=== PATIENT | male | born 1975 | race Caucasian/White ===

== ENCOUNTER 2018-05-19 10:44 | Inpatient (IN) | payer BC, OTHER ==
[~2018-05-19] VITALS: Ht 182.9 cm; Wt 86.2 kg
[2018-05-19] MEDS ORDERED: ONDANSETRON ODT 4 MG TAB.RAPDIS SL PRN (21:45)
[2018-05-19] MEDS ORDERED: ONDANSETRON 4 MG/2 ML VIAL IM PRN (21:45)
[2018-05-19] MEDS ORDERED: LORAZEPAM 2 MG/1 ML VIAL IM PRN (21:45)
[2018-05-19] MEDS ORDERED: LOPERAMIDE HCL 2 MG CAPSULE PO PRN ×2 (21:45)
[2018-05-19] MEDS ORDERED: MIRALAX 17 GM POWD.PACK PO PRN (21:45)
[2018-05-19] MEDS ORDERED: ACETAMINOPHEN 325 MG TABLET PO PRN (21:45)
[2018-05-19] MEDS ORDERED: CLONIDINE HCL 0.1 MG TABLET PO PRN (21:45)
[2018-05-19] MEDS ORDERED: MAGNESIUM HYDROXIDE 30 ML LIQUID UDC PO PRN (21:45)
[2018-05-19] MEDS ORDERED: DIAZEPAM 10 MG TABLET PO PRN ×2 (21:45)
[2018-05-19] MEDS ORDERED: MAG HYDROX/AL HYDROX/SIMETH 30 ML LIQUID UDC PO PRN (21:45)
[2018-05-19] MEDS ORDERED: diphenhydrAMINE 50 MG CAPSULE PO PRN (21:45)
[2018-05-19] MEDS ORDERED: IBUPROFEN 600 MG TABLET PO PRN (21:45)
[2018-05-19] MEDS ORDERED: HYDROXYZINE PAMOATE 25 MG CAPSULE PO PRN (21:45)
[2018-05-19] MEDS ORDERED: THIAMINE HCL 100 MG TABLET PO SCH (22:15)
[2018-05-19] MEDS: FOLIC ACID 1 MG TABLET PO SCH (22:15)
[2018-05-19] MEDS: MULTIVITAMINS,THERAPEUTIC TABLET PO SCH (22:15)
[2018-05-19 22:44] LABS: *AMPHETAMINE, URINE NEGATIVE (NEGATIVE); *BARBITURATE, URINE NEGATIVE (NEGATIVE); *CANNABINOID, URINE NEGATIVE (NEGATIVE); *COCCAINE, URINE NEGATIVE (NEGATIVE); *OPIATE, URINE NEGATIVE (NEGATIVE); *PHENCYCLIDINE SCREEN,URINE NEGATIVE (NEGATIVE)
[2018-05-19] MEDS ORDERED: THIAMINE HCL 200 MG/2 ML VIAL IM ONE (23:00)
[2018-05-20] VITALS: BP 114/77
[2018-05-20 02:15] LABS: BASOPHILS # (AUTO) 0.1 K/uL (0.0-8.0); BASOPHILS % (AUTO) 1.7 % (0.0-2.0); EOSINOPHILS % (AUTO) 0.7 % (0.0-7.0); HEMATOCRIT 43.5 % (36.7-47.1); HEMOGLOBIN 15.5 g/dL (12.5-16.3); LYMPHOCYTES # (AUTO) 1.1 K/uL (20.0-40.0); LYMPHOCYTES % (AUTO) 31.6 % (20.5-51.5); MEAN CORPUSCULAR HEMOGLOBIN 35.7 uug (23.8-33.4); MEAN CORPUSCULAR HGB CONC 36 g/dL (32.5-36.3); MEAN CORPUSCULAR VOLUME 100.3 fL (73.0-96.2); MONOCYTES # (AUTO) 0.4 K/uL (2.0-10.0); MONOCYTES % (AUTO) 12.5 % (0.0-11.0); NEUTROPHILS # (AUTO) 1.9 K/uL (1.8-8.9); NEUTROPHILS % (AUTO) 53.5 % (38.5-71.5); PLATELET COUNT (AUTO) 135 K/uL (152-348); RED BLOOD CELL COUNT(AUTO) 4.34 MIL/uL (4.06-5.63); WHITE BLOOD COUNT (AUTO) 3.6 K/uL (3.6-10.2)
[2018-05-20 02:49] LABS: BILIRUBIN,TOTAL 0.4 mg/dL (0.2-1.0); CREATININE 0.9 mg/dL (0.6-1.3); POTASSIUM 3.6 mmol/L (3.5-5.1); TOTAL PROTEIN, SERUM 7.2 g/dL (6.4-8.2)
[2018-05-20 02:59] LABS: THYROID STIMULATING HORMONE 2.183 mIU/mL (0.358-3.740)
[2018-05-20 04:00] VITALS: BP 123/82
[2018-05-20 08:00] VITALS: BP 132/92
[2018-05-20] MEDS ORDERED: TUBERCULIN,PURIF.PROT.DERIV. 5 TU/0.1 ML TEST ID ONE (09:00)
[2018-05-20] MEDS: MULTIVITAMINS,THERAPEUTIC TABLET PO SCH (09:32)
[2018-05-20] MEDS: THIAMINE HCL 100 MG TABLET PO SCH (09:32)
[2018-05-20] MEDS: FOLIC ACID 1 MG TABLET PO SCH (09:32)
[2018-05-20 12:00] VITALS: BP 138/92
[2018-05-20] MEDS ORDERED: HYDR-3895 PO (13:51)
[2018-05-20] MEDS ORDERED: FOLI1TAB16 PO (13:51)
[2018-05-20] MEDS ORDERED: IBUP-1955 PO (13:51)
[2018-05-20] MEDS ORDERED: MULT-24 PO (13:51)
[2018-05-20] MEDS ORDERED: CLON0.1T14 PO (13:51)
[2018-05-20] MEDS ORDERED: DIPH50CA37 PO (13:51)
[2018-05-20 16:00] VITALS: BP 140/91
[2018-05-20 20:12] VITALS: BP 131/86
[2018-05-21 07:07] LABS: HEPATITIS B SURFACE AG Negative (Negative)
[2018-05-21 08:03] VITALS: BP 115/80
[2018-05-21] MEDS: MULTIVITAMINS,THERAPEUTIC TABLET PO SCH (08:31)
[2018-05-21] MEDS: FOLIC ACID 1 MG TABLET PO SCH (08:31)
[2018-05-21] MEDS: THIAMINE HCL 100 MG TABLET PO SCH (08:31)
== END 2018-05-21 09:48 | disposition other institution (70) | DRG 895 ==
LOC: SRC 19:51
PROVIDERS: ADMIT Family Medicine Addiction Medicine; ATTEND Family Medicine Addiction Medicine
PROC: HZ2ZZZZ Detoxification Services for Substance Abuse Treatment (ICD-10-PCS; principal; 2018-05-19)
PROC: HZ41ZZZ Group Counseling for Substance Abuse Treatment, Behavioral (ICD-10-PCS; 2018-05-20)
DX: F10.230 Alcohol dependence with withdrawal, uncomplicated (principal); Y90.2 Blood alcohol level of 40-59 mg/100 ml; Z81.1 Family history of alcohol abuse and dependence; F32.9 Major depressive disorder, single episode, unspecified; R74.0 Nonspecific elevation of levels of transaminase and lactic acid dehydrogenase [LDH]
CPT/HCPCS: 36415; 70030-TC; 80307; 83690; 83735; 84443; 85025; 86580; 86592; 86705; 86803; 87340; 87806; A4663; G0480; Q0163